=== PATIENT | male | born 1985 | race Caucasian/White ===

== ENCOUNTER 2023-02-13 10:49 | Inpatient (IN) | payer OTHER ==
[2023-02-13 11:11] VITALS: BMI 46.2
[2023-02-13] MEDS ORDERED: LOPERAMIDE HCL 2 MG CAPSULE PO PRN (14:28)
[2023-02-13] MEDS ORDERED: DICYCLOMINE HCL 10 MG CAPSULE PO PRN (14:28)
[2023-02-13] MEDS ORDERED: IBUPROFEN 400 MG TABLET (FP) PO PRN (14:28)
[2023-02-13] MEDS ORDERED: ACETAMINOPHEN 325 MG TABLET (FP) PO PRN (14:28)
[2023-02-13] MEDS ORDERED: IBUPROFEN 600 MG TABLET (FP) PO PRN (14:28)
[2023-02-13] MEDS ORDERED: POLYETHYLENE GLYCOL (HEALTHYLAX) 3350 17 GM PACKET PO PRN (14:28)
[2023-02-13] MEDS ORDERED: MAGNESIUM HYDROX 2400MG/30ML ORAL SUSPENSION 30 ML CUP PO PRN (14:28)
[2023-02-13] MEDS ORDERED: BENZONATATE 200 MG CAPSULE PO PRN (14:28)
[2023-02-13] MEDS ORDERED: LORazepam 1 MG TABLET PO PRN (14:28)
[2023-02-13] MEDS ORDERED: NALOXONE HCL 0.4 MG/ML VIAL IM PRN (14:28)
[2023-02-13] MEDS ORDERED: BENZOCAINE/MENTHOL (CHLORASEPTIC ) LOZENGE MM PRN (14:28)
[2023-02-13] MEDS ORDERED: NALOXONE HCL (KLOXXADO) 8 MG SPRAY NS PRN (14:28)
[2023-02-13] MEDS ORDERED: MAG HYDROX/AL HYDROX/SIMETH 30 ML UNIT-DOSE CUP PO PRN (14:28)
[2023-02-13] MEDS ORDERED: BISMUTH SUBSALICYLATE 524 MG/30 ML PO PRN (14:28)
[2023-02-13] MEDS ORDERED: guaiFENesin 600 MG TABLET.ER (FP) PO PRN (14:28)
[2023-02-13] MEDS: LORazepam 2 MG TABLET PO SCH ×2 (16:20→22:26)
[2023-02-13] MEDS: ONDANSETRON *ODT* 4 MG TABLET SL PRN (16:21)
[2023-02-13] MEDS: hydrOXYzine PAMOATE 25 MG CAPSULE (FP) PO PRN (16:24)
[2023-02-13] MEDS: THIAMINE HCL 100 MG TABLET (FP) PO SCH (22:26)
[2023-02-13] MEDS: MELATONIN 5 MG TABLETS PO SCH (22:26)
[2023-02-13] MEDS: METHOCARBAMOL 500 MG TABLET PO PRN (22:26)
[2023-02-14] MEDS: LORazepam 2 MG TABLET PO SCH ×4 (05:23→22:14)
[2023-02-14] MEDS: ONDANSETRON *ODT* 4 MG TABLET SL PRN ×2 (05:24→17:03)
[2023-02-14 09:50] LABS: HEMATOCRIT 41.5 % (35.4-49); HEMOGLOBIN 13.5 GM/dL (11.7-16.9); MCH 28.9 pg (25.7-33.7); MCHC 32.5 g/dl (32.0-35.9); MEAN CELL VOLUME 88.8 fl (80-96); MEAN PLT VOLUME 10.1 fl (7.5-11.1); PLATELET COUNT 55 10^3/uL (134-434); RBC 4.68 M/mm3 (4.00-5.60); RDW 15.4 % (11.9-15.9)
[2023-02-14 10:05] LABS: POTASSIUM 3.6 mmol/L (3.5-5.1)
[2023-02-14 10:07] LABS: CALCIUM 8.1 mg/dL (8.5-10.1)
[2023-02-14 10:08] LABS: ALBUMIN 3.3 g/dl (3.4-5.0); BLOOD UREA NITROGEN 8.6 mg/dL (7-18)
[2023-02-14 10:11] LABS: CREATININE 0.5 mg/dL (0.55-1.3)
[2023-02-14 10:13] LABS: TOT PROT 6.7 g/dl (6.4-8.2)
[2023-02-14] MEDS: PRENATAL VITAMINS W/ FOLIC ACID TABLET (FP) PO SCH (10:20)
[2023-02-14] MEDS ORDERED: cloNIDine HCL 0.1 MG TABLET PO PRN (11:03)
[2023-02-14] MEDS: CALCIUM CARBONATE 650 MG TABLET PO SCH ×2 (15:18→22:13)
[2023-02-14] MEDS: THIAMINE HCL 100 MG TABLET (FP) PO SCH (22:13)
[2023-02-14] MEDS: hydrOXYzine PAMOATE 25 MG CAPSULE (FP) PO PRN (22:13)
[2023-02-14] MEDS: METHOCARBAMOL 500 MG TABLET PO PRN (22:13)
[2023-02-14] MEDS: MELATONIN 5 MG TABLETS PO SCH (22:13)
[2023-02-15] MEDS: LORazepam 1 MG TABLET PO SCH ×4 (05:26→22:00)
[2023-02-15] MEDS: PRENATAL VITAMINS W/ FOLIC ACID TABLET (FP) PO SCH (09:31)
[2023-02-15] MEDS: CALCIUM CARBONATE 650 MG TABLET PO SCH ×2 (09:31→22:01)
[2023-02-15] MEDS: ONDANSETRON *ODT* 4 MG TABLET SL PRN ×2 (10:30→17:52)
[2023-02-15 11:52] LABS: POTASSIUM 3.9 mmol/L (3.5-5.1)
[2023-02-15 11:54] LABS: CALCIUM 8.6 mg/dL (8.5-10.1)
[2023-02-15 11:55] LABS: ALBUMIN 3.4 g/dl (3.4-5.0); BLOOD UREA NITROGEN 8.3 mg/dL (7-18)
[2023-02-15 11:57] LABS: CREATININE 0.6 mg/dL (0.55-1.3)
[2023-02-15 11:59] LABS: BILIRUBIN,TOTAL 2.9 mg/dL (0.2-1); TOT PROT 6.6 g/dl (6.4-8.2)
[2023-02-15 12:01] LABS: BASO % 0.7 % (0-2.0); EOS % 3.2 % (0-4.5); HEMATOCRIT 41.8 % (35.4-49); HEMOGLOBIN 13.8 GM/dL (11.7-16.9); LYMPH % 21.9 % (8-40); MCH 29.3 pg (25.7-33.7); MCHC 33.1 g/dl (32.0-35.9); MEAN CELL VOLUME 88.7 fl (80-96); MEAN PLT VOLUME 10.4 fl (7.5-11.1); MONO % 9.5 % (3.8-10.2); NEUT % 64.7 % (42.8-82.8); PLATELET COUNT 55 10^3/uL (134-434); RBC 4.71 M/mm3 (4.00-5.60); RDW 15.4 % (11.9-15.9); WHITE BLOOD COUNT 4.3 K/mm3 (4.0-10.0)
[2023-02-15] MEDS: THIAMINE HCL 100 MG TABLET (FP) PO SCH (22:01)
[2023-02-15] MEDS: MELATONIN 5 MG TABLETS PO SCH (22:01)
[2023-02-15] MEDS: METHOCARBAMOL 500 MG TABLET PO PRN (22:02)
[2023-02-16] MEDS ORDERED: LORazepam 0.5 MG TABLET PO PRN
[2023-02-16] MEDS: LORazepam 0.5 MG TABLET PO SCH ×2 (05:21→10:20)
[2023-02-16] MEDS: ONDANSETRON *ODT* 4 MG TABLET SL PRN (06:36)
[2023-02-16 09:23] VITALS: BP 150/82; PULSE 76; RESP 18; TEMP 97.6
[2023-02-16] MEDS: PRENATAL VITAMINS W/ FOLIC ACID TABLET (FP) PO SCH (10:20)
[2023-02-16] MEDS: CALCIUM CARBONATE 650 MG TABLET PO SCH (10:20)
[2023-02-17] MEDS ORDERED: LORazepam 0.5 MG TABLET PO ONE (05:00)
== END 2023-02-16 10:00 | disposition home or self-care (01) | DRG 773 ==
LOC: SUATTDRO 10:49 → YASAS 10:49 → Y3N 14:08
PROVIDERS: ADMIT Allergy & Immunology; ATTEND Surgery
PROC: HZ2ZZZZ Detoxification Services for Substance Abuse Treatment (ICD-10-PCS; principal; 2023-02-13)
DX: F10.230 Alcohol dependence with withdrawal, uncomplicated (principal); F11.20 Opioid dependence, uncomplicated; F17.210 Nicotine dependence, cigarettes, uncomplicated; F10.280 Alcohol dependence with alcohol-induced anxiety disorder; F41.0 Panic disorder [episodic paroxysmal anxiety]; D69.6 Thrombocytopenia, unspecified; E83.51 Hypocalcemia; E66.01 Morbid (severe) obesity due to excess calories; Z68.42 Body mass index [BMI] 45.0-49.9, adult; R73.9 Hyperglycemia, unspecified; R74.8 Abnormal levels of other serum enzymes; R03.0 Elevated blood-pressure reading, without diagnosis of hypertension
CPT/HCPCS: 36415; 80053; 80307; 83036; 85025; 85027; 86780; 87635; 87811; 93005; 93010; Q0162